=== PATIENT | male | born 1980 | race Caucasian/White ===

== ENCOUNTER 2016-09-01 04:18 | Emergency (ER) | payer SELFPAY ==
[~2016-09-01] VITALS: Ht 180.3 cm; Wt 109.0 kg
[2016-09-01 05:12] VITALS: BP 168/96
== END 2016-09-01 06:38 | disposition home or self-care (01) ==
LOC: ER 06:06
DX: H10.022 Other mucopurulent conjunctivitis, left eye (principal); I10 Essential (primary) hypertension; F17.210 Nicotine dependence, cigarettes, uncomplicated; Z88.0 Allergy status to penicillin
CPT/HCPCS: 99283

== ENCOUNTER 2016-10-24 11:30 | Emergency (ER) | payer SELFPAY ==
[~2016-10-24] VITALS: Ht 177.8 cm; Wt 125.0 kg
[2016-10-24 11:34] VITALS: BP 165/106
== END 2016-10-24 13:33 | disposition home or self-care (01) ==
LOC: ER 13:29
DX: H10.32 Unspecified acute conjunctivitis, left eye (principal); E78.00 Pure hypercholesterolemia, unspecified; I10 Essential (primary) hypertension; F17.210 Nicotine dependence, cigarettes, uncomplicated; F12.10 Cannabis abuse, uncomplicated; Z88.0 Allergy status to penicillin
CPT/HCPCS: 99283